=== PATIENT | female | born 1950 | race Caucasian/White ===

== ENCOUNTER 2021-04-11 10:00 | Outpatient (RCR) | payer MEDICARE, SELFPAY ==
[2021-03-01 08:10] VITALS: BMI 27.4
--- NOTE | 2021-03-07 12:03 | HP.PTEVAL ---
Patient's Visit Information ELISHA ELENA is a 70 year old F referred to Physical Therapy by Dr. Keo Theodore DO with a diagnosis of PAULY TROCH BURSITIS, R HIP FLEX TENDONITS AND MILD PAULY HIP DJD. Date of Evaluation: 03/07/21 Physical Therapist: Jacqui Felix, PT, Cert MDT - Visit Plan Frequency: 2-3x /Week Duration: 4-6 Weeks Plan: AQUATIC THERAPY FOR PAIN RELEIF, POSTURE CORRECTION/STRENGTHENING, INSTRUCTION IN APPROPRIATE BODY MECHANICS AND ACTIVITY MODIFICATIONS. DLS STARTING WITH A NEUTRAL SPINE PROGRESSING ROM TOLERATED. PAULY LE ROM, STRETCHING AND STRENGTHENING. HEP INSTRUCTION. - Subjective Work/Leisure: RETIRED. 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 Present symptoms: RIGHT HIP PAIN. RIGHT GROIN PAIN. RIGHT THIGH PAIN. ACHING AND MAYBE NUMBNESS DOWN FRONT OF THIGH JUST BELOW THE KNEE. NO LOW BACK PAIN. SOME LEFT HIP PAIN TOO. Present since: ABOUT A YEAR AGO. Pain Scale: WORST 8/10, LEAST 0/10. Currently: 1/10. Commenced as a result of: PROBABLY PLAYING PICKLE BALL. Symptoms at onset: RIGHT HIP PAIN. Worse: *WALKING*, PLAYING PICKLE BALL. Better: ASPIRIN, RIGHT HIP FLEX AND EXTERNAL ROTATION STRETCH LYING ON BACK (GIVEN BY CHIROPRACTOR ABOUT A YEAR AGO). OTHER: ONCE IT FLARES UP IT TAKES A COUPLE DAYS OF AVOIDING WALKING AND PICKLE BALL TO GET IT TO SETTLE DOWN. Disturbed sleep: NO. Previous history/Previous treatment: H/O CHIROPRACTIC TREATMENTS OFF AND ON NEEDED FOR HIP PAIN FOR ABOUT 10 YEARS. LAST CHIROPRACTIC VISIT WAS ABOUT A YEAR AGO. STOPPED GOING WHEN IT STOPPED HELPING. NO HX OF LBP. Treatment this episode: CONSULT WITH DR. VILLEGAS. MALOXACAM X 3 WEEKS AND STILL TAKING. NO HIP SURGERIES OR INJECTIONS. PT CONSULT ORDERED. Coughing/sneezing/straining: NEGATIVE. Gait: NORMAL AT TIMES. LIMPS WHEN FLARED UP. VERY TIME AND DISTANCE LIMITED WHEN FLARED UP. VERY SHORT STRIDE AND FEELS LIKE RIGHT LEG MIGHT GIVE OUT WHEN FLARED UP. TURNING OR STEPPING SIDEWAYS BECOMES VERY DIFFICULT WITH FLARE UPS. Difficulty initiating urinatin: NO. Accidents: NO. Unexplained weight loss: NO. Imaging: PAULY HIP X-RAYS AND THEN DX'D WITH BURSITIS AND MILD PAULY HIP ARTHRITS PER PATIENT REPORT - SEE [facility] EMR. PMH/Recent major surgery: UNREMARKABLE. - Objective Sitting/Standing Posture: POOR. Active Correction of posture: Other Observations: INDEP TRANSFERS SIT TO STAND WITHOUT UE ASSIST. INDEP GAIT INTO PT WITHOUT ANY ASSISTIVE DEVICES OR GROSS DEVIATIONS NOTED. PATIENT REPORTS TODAY IS A GOOD DAY AND SHE PLAYED PICKLE BALL THIS MORNING. SHE DOES NOT PLAY PICKLE BALL WHEN IT IS HURTING BADLY. Motor deficit: PAULY LE'S 5/5 WITH MMT'ING EXCEPT L HIP 4/5 AND RIGHT HIP 3+/5 BEFORE PROVOKING PAIN IN IPSILATERAL HIP. Sensory deficit: PAULY LE LIGHT TOUCH SENSATION INTACT AND SYMMETRICAL. ROM deficit: PAULY HIP FLEXOR, QUAD, HS AND GASTROC SOLEUS COMPLEXS. R HIP EXTERNAL ROTATION APPROX 25% LIMITED COMPARED TO LEFT AND TESTING OF BOTH R HIP INTERNAL AND EXTERNAL ROTATION IS PAINFUL COMPARED TO NOT BEING PAINFUL WITH TESTING OF LEFT. Reflexes: NT. Dural Signs: NEGATIVE PAULY LE'S. Lumbar mvmt loss: flex - NIL - NE. ext - MOD - PRODUCES RIGHT ANTERIOR HIP PAIN. R SG - MOD. L SG - MIN. Core strength: POOR. Palpation: OTHER: POSITIVE PAULY NELIDA TESTING RIGHT > LEFT. TREATMENT: NEUROMUSCULAR REEDUCATION - RETRAINING OF MVMT AND POSTURE FOR SITTING, LYING AND STANDING ACTIVITIES. HIP HEAT OR COLD NEEDED. REST FROM WALKING AND PICKLE BALL. - Goals Goal 1:: DECREASE C/O PAULY HIP AND RIGHT LE SX'S Goal Time Frame: 4-6 Weeks Goal 2:: IMPROVE WALKING AND PICKLE BALL PLAYING FUNCTION. Goal Time Frame: 4-6 Weeks Goal 3:: PATIENT WILL BE INDEP WITH A HEP FOR CONTINUED IMPROVEMENT ONCE FORMAL PHYSICAL THERAPY CONCLUDES. Goal Time Frame: 4-6 Weeks - Anticipated Interventions Patient/Client Instruction: Educate patient on: Condition, Plan of Care, Risk Factors For the Purpose of:: To improve self management Therapeutic Exercise to Include: Strength training, Body mechanics, Postural training, Flexibilty training, Gait and locomotor training, Neuromotor development, In an aquatic setting, Dynamic Lumbar Stabilization For the Purpose of:: To decrease pain, To increase ROM, To improve muscle performance and motor function, To increase tolerance to activity/condition/position, To improve ability of physical actions for home/community/work/leisure, To improve gait and locomotor functions Thank you for the opportunity to evaluate your patient. For Medicare and Medicare HMO plans, please review the plan of care and approve it. It will need to be FAXED BACK to us at [phone] for Medicare purposes. For Medicare only, by signing this I certify the plan of care. Please let me know if there are questions or concerns regarding this plan of care. Physician Signature: Date:
--- NOTE | 2021-04-11 13:55 | HP.PTDCSUM_ITS ---
It has been my pleasure to treat ELISHA ELENA referred by Dr. Keo Theodore DO, with the diagnosis of PAULY TROCH BURSITIS, R HIP FLEX TENDONITS AND MILD PAULY HIP DJD for a total of 10 visit(s). Discharge Date: Please see the following information for a summary of their discharge status. Subjective: PATIENT REPORTS THAT THE EXTREME PAIN THAT SHE HAD WITH PICKLE BALL AND PROLONGED WALKING IS GONE. ONLY HAVING PAIN IN THE BACK OF THE HIP NOT THE FRONT OF THE HIP NOW. NO LONGER HAVING THE SHARP PAIN THAT STOPPED HER FROM WALKING. PAIN UP TO 7/10 AT TIMES STILL THOUGH. IF I GET UP IN THE MORNING AND IT HURTS IF I DO MY EX'S IT HELPS IT. GOLFED 18 HOLES YESTERDAY. Right Hip Pain Intensity (Out of 10): 0 % Improvement: 60 Objective/Function: PATIENT WAS SEEN TODAY FOR RE-ASSESSMENT OF PROGRESS TOWARD THE SET PT GOALS AND THE NEED FOR FURTHER PHYSICAL THERAPY VS READINESS FOR DISCHARGE. SHE IS APPROPRIATE FOR DISCHARGE TO [facility] AT THIS TIME. UPON EXAM TODAY: Motor deficit: PAULY LE'S 5/5 WITH MMT'ING. Sensory deficit: PAULY LE LIGHT TOUCH SENSATION INTACT AND SYMMETRICAL. ROM deficit: MILD TIGHTNESS PAULY HIP FLEXOR, QUAD, HS AND GASTROC SOLEUS COMPLEXS. PAULY HIP EXTERNAL ROTATION ROM IS SYMMETRICAL NOW TO JUST VERY MILDLY TIGHT RIGHT. PATIENT DENIES PAIN WITH IR/ER ROM TESTING TODAY. Reflexes: NT. Dural Signs: NEGATIVE PAULY LE'S. Lumbar mvmt loss: flex - NIL - NE. ext - MOD. R SG - MIN. L SG - MIN. PATIENT DENIES PAIN WITH LUMBAR ROM TESTING TODAY. Core strength: POOR. OTHER: NEG PAULY NELIDA TESTING. Goal 1:: DECREASE C/O PAULY HIP AND RIGHT LE SX'S Goal Progress: Goal Met Goal 2:: IMPROVE WALKING AND PICKLE BALL PLAYING FUNCTION. Goal Progress: Goal Met Goal 3:: PATIENT WILL BE INDEP WITH A [facility] FOR CONTINUED IMPROVEMENT ONCE FORMAL PHYSICAL THERAPY CONCLUDES. Goal Progress: Goal Met Plan: D/C TO [facility] PROGRAM. PATIENT AGREEABLE If there are questions or concerns regarding this patient's physical therapy, please feel free to call me at [phone]. Thank you for the referral of this patient. Sincerely, Jacqui Felix, PT, Cert MDT Balance/Gait/Functional tests - Balance/Special Test Scores Lower Extremity Functional Score: 61
== END 2021-04-11 15:39 | disposition home or self-care (01) ==
LOC: PT 10:00
PROVIDERS: PCP Family Medicine; Referring Provider Orthopaedic Surgery; Visit Provider Orthopaedic Surgery
DX: M70.62 Trochanteric bursitis, left hip (principal); M70.61 Trochanteric bursitis, right hip; Y93.9 Activity, unspecified; M16.0 Bilateral primary osteoarthritis of hip
CPT/HCPCS: 97112; 97113; 97162; 97164